=== PATIENT | male | born 1980 | race Caucasian/White ===

== ENCOUNTER 2021-07-30 22:15 | Emergency (ER) | payer SELFPAY ==
[~2021-07-30] VITALS: Ht 188 cm; Wt 75.0 kg
[2021-07-30] MEDS ORDERED: LORAZEPAM 1MG TABLET PO ONE (22:45)
[2021-07-30 22:58] LABS: BASOPHILS % 0.4 % (0.0-2.0); EOSINOPHILS % 0.5 % (0.0-5.0); HEMATOCRIT. 41.3 % (42.0-52.0); HEMOGLOBIN. 14.3 g/dL (14.0-18.0); LYMPHOCYTES % 29.1 % (20.0-50.0); MEAN CORPUSCULAR HEMOGLOBIN 31.4 pg (28.0-32.0); MEAN CORPUSCULAR VOLUME 90.8 fL (80.0-94.0); MEAN PLATELET VOLUME 8.7 fl (7.4-10.4); MONOCYTES % 10.8 % (2.0-8.0); NEUTROPHILS % 59.2 % (40.0-76.0); PLATELET 211 x1000/uL (130-400); RED BLOOD CELL COUNT 4.55 mill/uL (4.7-6.1); RED CELL DISTRIBUTION WIDTH 13.4 % (11.6-14.6)
[2021-07-30 23:06] LABS: CHLORIDE 101 mEq/L (98-107)
[2021-07-30 23:10] LABS: ETHANOL BLOOD < 10 mg/dL
[2021-07-31 00:45] LABS: *AMPHETAMINES SCREEN URINE NEGATIVE (NEGATIVE); *BARBITURATES SCREEN URINE NEGATIVE (NEGATIVE); *BENZODIAZEPINES SCREEN URINE NEGATIVE (NEGATIVE)
[2021-07-31 00:46] LABS: *COCAINE SCREEN URINE NEGATIVE (NEGATIVE); METHADONE URINE SCREEN NEGATIVE (NEGATIVE); OPIATES URINE SCREEN NEGATIVE (NEGATIVE); PHENCYCLIDINE URINE SCREEN NEGATIVE (NEGATIVE)
[2021-07-31 00:47] LABS: CANNABINOID URINE SCREEN NEGATIVE (NEGATIVE)
[2021-07-31 12:16] VITALS: BP 120/70
== END 2021-07-31 12:18 | disposition home or self-care (01) ==
LOC: ER 22:15
DX: F41.1 Generalized anxiety disorder (principal); Z20.822 Contact with and (suspected) exposure to COVID-19
CPT/HCPCS: 36415; 80053; 80305; 80307; 80320; 80329; 85025; 99285; C9803; U0003; U0005; G0480